=== PATIENT | male | born 2000 | race Two or more races ===

== ENCOUNTER 2024-09-22 15:46 | Emergency (ER) | payer OTHER ==
[~2024-09-22] VITALS: Ht 182.9 cm; Wt 79.0 kg
[2024-09-22 18:26] VITALS: BP 129/64; PULSE 101; RESP 14; TEMP 98; O2SAT 98
[2024-09-22] MEDS ORDERED: CLIN1CAP70 PO (18:29)
[2024-09-22] MEDS ORDERED: IBUP-1456 PO (18:29)
[2024-09-22] MEDS: cefTRIAXone SOD 1,000 MG VL IM ONE (18:30)
[2024-09-22] MEDS: IBUPROFEN 800 MG TAB PO ONE (18:30)
--- NOTE | 2024-09-22 18:31 | ED.PDOC ---
Musculoskeletal HPI Comments 24-year-old male presents to ER for wound check. Patient reports that he accidentally stepped on glass two days ago with his right foot while walking bear foot in his house and is unsure if glass is still in his right foot and presents to ER today for wound check. He rates his current pain a 8/10 localized to plantar surface of right foot. Reports he has been taking Tylenol for his pain with slight relief. Denies fever, skin drainage, numbness/tingling or any further symptoms/complaints Chief Complaint: Lower Extremity Time Seen by MD: 18:06 Primary Care Provider: NONE Reviewed Notes: Nurses Notes, Medications, Allergies Allergies: Uncoded Allergies: CATS (Allergy, Unknown, 09/22/24) Home Meds Active Scripts Ibuprofen (Ibuprofen) 800 Mg Tab, 1 TAB PO TID PRN, #30 TAB 0 Refills Prov:BATSHEVA RUIZ 09/22/24 Clindamycin Hcl (Clindamycin Hcl) 300 Mg Cap, 1 CAP PO TID for 7 Days, #21 CAP 0 Refills Prov:BATSHEVA RUIZ 09/22/24 Information Source: Patient Mode of Arrival: Ambulatory Last Tetanus: UTD Past Medical History PAST MEDICAL HISTORY: Denies Surgical History: Denies all surgeries Family History Family History: Unknown Social History Smoker: Other (nicotine vape) Alcohol: Denies ETOH Use Drugs: Marijuana Lives In: Home Constitutional: denies: chills, diaphoresis, fatigue, fever, malaise, sweats, weakness, others EENTM: denies: blurred vision, double vision, ear bleeding, ear discharge, ear drainage, ear pain, ear ringing, eye pain, eye redness, hearing loss, mouth pain, mouth swelling, nasal discharge, nose bleeding, nose congestion, nose pain, photophobia, tearing, throat pain, throat swelling, voice changes, others Respiratory: denies: cough, hemoptysis, orthopnea, SOB at rest, shortness of breath, SOB with excertion, stridor, wheezing, others Cardiovascular: denies: chest pain, dizzy spells, diaphoresis, Dyspnea on exer tion, edema, irregular heart beat, left arm pain, lightheadedness, palpitations, PND, syncope, others Gastrointestinal: denies: abdomen distended, abdominal pain, blood streaked bowels, constipated, diarrhea, dysphagia, difficulty swallowing, hematemesis, melena, nausea, poor appetite, poor fluid intake, rectal bleeding, rectal pain, vomiting, others Genitourinary: denies: burning, dysuria, flank pain, frequency, hematuria, incontinence, penile discharge, penile sore, pain, testicle pain, testicle swelling, urgency, others Neurological: denies: dizziness, fainting, headache, left sided numbness, left sided weakness, numbness, paresthesia, pre-existing deficit, right sided numbness, right sided weakness, seizure, speech problems, tingling, tremors, weakness, others Musculoskeletal: denies: back pain, gout, joint pain, joint swelling, muscle pain, muscle stiffness, neck pain, others Integumetry: reports: others (As stated in HPI) Allergic/Immunocompromised: denies: Difficulty Healing, Frequent Infections, Hives, Itching, others Hematologic/Lymphatic: denies: anemia, blood clots, easy bleeding, easy bruising, swollen glands, others Endocrine: denies: excessive hunger, excessive sweating, excessive thirst, excessive urination, flushing, intolerance to cold, intolerance to heat, unexplained weight gain, unexplained weight loss, others Psychiatric: denies: anxiety, bipolar disorder, depression, hopeless, panic disorder, schizophrenia, sleepless, suicidal, others Physical Exam General Appearance: No Apparent Distress HEENT: PERRL/EOMI Neck: Full Range of Motion, Non-Tender, Normal Respiratory: Chest Non-Tender, Lungs Clear, No Accessory Muscle Use, No Respiratory Distress, Normal Breath Sounds Cardiovascular: No Murmur, No Gallop, Regular Rate/Rhythm Breast Exam: Deferred Gastrointestinal: NOT DONE Genitalia: Deferred Pelvic: Deferred Rectal: Deferred Extremities: Normal capillary refill, Normal range of motion Musculoskeletal : Extremity Location: Foot (1 cm x 1 cm puncture wound to plantar surface of right foot noted without any visualized/palpable foreign body. Slight TTP/Swelling/erythema localized to wound edges. No further skin changes noted) Neurologic: Alert, associate dentist II-XII nml as Tested, No Motor Deficits, Normal Affect, Normal Mood, No Sensory Deficits Cerebellar Function: Normal Reflexes: Normal Skin: Dry, Normal Color, Warm Lymphatic: No Adenopathy Was a procedure done? Was a procedure done?: Yes Sedation Sedation?: No Foreign Body Removal Foreign body in: Other (PLANTAR SURFACE OF RIGHT FOOT) Anesthetic: Lidocaine (1%) Prep: Betadine Procedure: Identified, Removed (6 MM GLASS FOREIGN BODY FULLY REMOVED FROM RIGHT FOOT USING TWEEZERS. PATIENT TOLERATED WELL WITHOUT ANY COMPLICATION. NO OTHER FOREIGN BODIES APPRECIATED POST FOREIGN BODY REMOVAL) Informed consent obtained: Yes Risks/benefits/alt described: Yes Differential Diagnosis EXT Differential Diagnosis: Fracture, Dislocation, Laceration, Neurovascular injury X-Ray, Labs, Meds, VS Vital Signs Date Time Temp Pulse Resp B/P (MAP) Pulse Ox O2 Delivery O2 Flow Rate FiO2 09/22/24 18:26 98.0 101 14 129/64 (85) 98 98.0 09/22/24 18:26 101 14 98 Room Air 09/22/24 16:30 98.0 101 16 129/64 (85) 98 98.0 Current Medications Medications (Trade) Dose Ordered Sig/Dario Route Start Time Stop Time Status Last Admin Ceftriaxone Sodium (Rocephin) 1,000 mg ONCE ONCE IM 09/22/24 18:30 09/22/24 18:34 DC 09/22/24 18:30 Ibuprofen (Motrin Tablet) 800 mg ONCE ONCE PO 09/22/24 18:30 09/22/24 18:34 DC 09/22/24 18:30 PATIENT: MANJITELVIA DURANDONY ACCT: [id number] UNIT: [id number] : 2000 LOC: ER ROOM / BED: / AGE / SEX: 24 / M ADM STATUS: REG ER SERVICE [id number] ORDERING PHYSICIAN: BATSHEVA RUIZ PROCEDURE(s): RFOOT - R FOOT 3 VIEW XRAY REASON: right foot pain r/o foreign body ORDER NUMBER(s): [id number], ACCESSION NUMBER(s): [id number] CLINICAL INDICATION: right foot pain r/o foreign body TECHNIQUE: 3 radiographic views of the right foot were obtained. Comparison: None FINDINGS/IMPRESSION: There is no evidence of acute fracture or dislocation. The visualized joint space is well maintained. The alignment is anatomical. A 6 mm radiopaque foreign body noted just beneath the skin surface in the central plantar portion of the right foot. ATED BY: MELLO FARIAS Jr. DO DICTATED DATE/TIME: 09/22/241920 SIGNED BY: MELLO FARIAS Jr., DO SIGNED DATE/TIME: 09/22/241920 CC: PATIENT: BATSHEVA SARAVIA ACCT: [id number] UNIT: [id number] : 2000 LOC: ER ROOM / BED: / AGE / SEX: 24 / M ADM STATUS: REG ER SERVICE [id number] ORDERING PHYSICIAN: BATSHEVA RUIZ PROCEDURE(s): RFOOT - R FOOT 3 VIEW XRAY REASON: POST FOREIGN BODY REMOVAL ORDER NUMBER(s): [id number], ACCESSION NUMBER(s): [id number] CLINICAL INFORMATION: 24 years old, Male; POST FOREIGN BODY REMOVAL. TECHNIQUE: 3 views of the right foot were obtained. COMPARISON: XY R FOOT 3 VIEW XRAY on DOS: 09/22/24 FINDINGS: There is pes planus. Bones are unremarkable. There is evidence for laceration involving the plantar aspect of the soft tissues at the level of the tarsometatarsal joints there still may be debris foreign body in the region of the injury. IMPRESSION: 1. Possible additional debris and foreign bodies There is pes planus ATED BY: FREDDY KNUTSON MD DICTATED DATE/TIME: 09/22/242144 SIGNED BY: FREDDY KNUTSON MD SIGNED DATE/TIME: 09/22/242144 CC: Right foot x-ray reviewed Post foreign body removal right foot x-ray reviewed Wound cleaning reporting at bedside Ibuprofen 800 mg p.o. ordered Rocephin 1 g IM ordered Patient neurovascularly intact and reported improvement in symptoms prior to discharge Wound care/cleaning discussed and advised Advised to follow up with PCP and podiatry in 1-2 days Patient verbalized understanding and agreeable with current plan of care Advised to return to ER immediately if symptoms worsen Images Reviewed?: Images reviewed and evaluated by me Time of 1ST Reevaluation: 18:22 Reevaluation 1ST: N/A Time of 2ND Reevaluation: 21:50 Reevaluation 2ND: Improved Patient Education/Counseling: Diagnosis, Treatment, Prognosis, Need For Follow Up Family Education/Counseling: No Family Present Departure 1 Departure Time of Disposition: 21:52 Impression: Primary Impression: Foreign body in foot, right Qualified Codes: S90.851A - Superficial foreign body, right foot, initial encounter Disposition: HOME / SELF CARE / HOMELESS Condition: Stable e-Prescriptions Ibuprofen (Ibuprofen) 800 Mg Tab 1 TAB PO TID PRN, #30 TAB 0 Refills Prov: BATSHEVA RUIZ 09/22/24 Clindamycin Hcl (Clindamycin Hcl) 300 Mg Cap 1 CAP PO TID for 7 Days, #21 CAP 0 Refills Prov: BATSHEVA RUIZ 09/22/24 Discharged With: Self Critical Care Note Critical Care Time?: No Stability Stability form required: No Heart Score Heart Score: Heart Score Response (Comments) Value History N/A 0 EKG N/A 0 Age N/A 0 Risk Factors N/A 0 Troponin N/A 0 Total 0 BATSHEVA RUIZ Sep 22, 2024 18:31
--- NOTE | 2024-09-22 19:24 | DVH ---
CLINICAL INDICATION: right foot pain r/o foreign body TECHNIQUE: 3 radiographic views of the right foot were obtained. Comparison: None FINDINGS/IMPRESSION: There is no evidence of acute fracture or dislocation. The visualized joint space is well maintained. The alignment is anatomical. A 6 mm radiopaque foreign body noted just beneath the skin surface in the central plantar portion of the right foot.
--- NOTE | 2024-09-22 21:47 | DVH ---
CLINICAL INFORMATION: 24 years old, Male; POST FOREIGN BODY REMOVAL. TECHNIQUE: 3 views of the right foot were obtained. COMPARISON: XY R FOOT 3 VIEW XRAY on DOS: 09/22/24 FINDINGS: There is pes planus. Bones are unremarkable. There is evidence for laceration involving th e plantar aspect of the soft tissues at the level of the tarsometatarsal joints there still may be de bris foreign body in the region of the injury. IMPRESSION: 1. Possible additional debris and foreign bodies There is pes planus
== END 2024-09-22 22:00 | disposition home or self-care (01) ==
LOC: ER 15:46
DX: S90.851A Superficial foreign body, right foot, initial encounter (principal); F12.90 Cannabis use, unspecified, uncomplicated; F17.290 Nicotine dependence, other tobacco product, uncomplicated; Z79.899 Other long term (current) drug therapy; W25.XXXA Contact with sharp glass, initial encounter; Y93.01 Activity, walking, marching and hiking; Y92.89 Other specified places as the place of occurrence of the external cause; Y99.8 Other external cause status
CPT/HCPCS: 73630; 96372; 99284; J0696